=== PATIENT | female | born 1960 | race Caucasian/White ===

== ENCOUNTER 2017-05-11 07:24 | Observation (INO) | payer OTHER ==
--- NOTE | 2017-05-11 07:40 | EDPHY ---
H & P Stated Complaint: dyspnea/congestiion/hx asthma/seen /on prednisone HPI/ROS: CHIEF COMPLAINT: Difficulty breathing HISTORY OF PRESENT ILLNESS: The patient is a 56 y/o female with a history of asthma arriving with her complaining of difficulty breathing onset 4 days ago. She has been using albuterol nebulizer treatments 4-5 times per day since then. She went to urgent care on Sunday and was prescribed a 60mg taper of prednisone in addition to her albuterol and Dulera treatments. Symptoms have not improved. Last night she had a productive cough with thick, viscous, green mucus and she says, "I thought I was going to ." She felt like she couldn't get air or stop coughing. She had a fever of 102.9F at home and has not taken anything for fever. This morning her describes her needing to stop talking every few words to take a breath. She is completing a duo neb treatment here during assessment and feels improved. No prior admissions for asthma. She received a flu vaccination this season. REVIEW OF SYSTEMS: A ten point review of systems was performed and is negative with the exception of the items mentioned in the HPI. Past medical history: Asthma - Dulera and albuterol (neb) Past surgical history: Wrist surgery Family history: Noncontributory Social history: at bedside. Nonsmoker. PCP: Dr. Sultana. General Appearance: Alert. Vital signs reviewed. Heart rate 132 at triage. Blood pressure 136/72. Afebrile. Eyes: Pupils equal and round, no conjunctival injection, no discharge. Anicteric. ENT, Mouth: Mucous membranes are moist, no oropharyngeal erythema or edema. Neck: No lymphadenopathy, supple. Respiratory: Lungs are clear to auscultation; no wheezes, rales, or rhonchi. Cardiovascular: Tachycardic regular; no murmur, rub, or gallop. Gastrointestinal: Abdomen is soft and nontender, no masses or organomegaly. Skin: Warm and dry, no rashes on exposed skin, normal color. Back: Nontender to palpation over the thoracolumbar spine. No CVAT. Extremities: No lower extremity edema, no calf tenderness or swelling. Neurological: Alert and oriented. Moving all four extremities easily and equally. Psychiatric: Normal affect. - Personal History Current Tetanus/Diphtheria Vaccine: Yes - Medical/Surgical History Hx Asthma: Yes Hx Chronic Respiratory Disease: No Hx Diabetes: No Hx Cardiac Disease: No Hx Renal Disease: No Hx Cirrhosis: No Hx Alcoholism: No Hx HIV/AIDS: No Hx Splenectomy or Spleen Trauma: No Other PMH: asthma - Social History Smoking Status: Never smoked Constitutional: Initial Vital Signs Temperature (C) 37.6 C 05/11/17 07:27 Heart Rate 132 H 05/11/17 07:27 Respiratory Rate 20 05/11/17 07:27 Blood Pressure 136/72 H 05/11/17 07:27 O2 Sat (%) 93 05/11/17 07:27 O2 Delivery Mode Room Air O2 (L/minute) 2 Allergies/Adverse Reactions: No Known Allergies Allergy (Unverified 05/11/17 07:26) Home Medications: Medication Instructions Recorded Albuterol Hfa Anes Only 05/11/17 Benzonatate [Tessalon Pearles (RX)] 100 mg PO TID #15 cap 05/11/17 Dulera 100 Mcg/5 Mcg Inhaler 05/11/17 Prednisone 05/11/17 Medical Decision Making - Diagnostics Imaging: I viewed and interpreted images myself ED Course/Re-evaluation: This is a 56 y/o female with asthma who is otherwise normally healthy and presents with a 4-day history of dyspnea and cough that worsened last night. She recorded a fever at home, but is afebrile here. Her lungs are clear on auscultation following a duo neb treatment and she is breathing more comfortably. Plan for IV, basic labs, flu swab, and chest x-ray. Positive for flu B. Chest x-ray shows no infiltrate. 0910: Reassessed patient and discussed work up. She is not febrile here. Oxygen saturations are in the high 90s on room air. She is breathing comfortably. Lungs remain clear without wheezing. She continues to be slightly tachycardic. We discussed symptomatic measures to treat her influenza. Hydration was emphasized. She is given a prescription for Tessalon Perles to use for cough. She is given instructions for fever and pain control. Danger signs reviewed. Differential Diagnosis: Shortness of breath including but not limited to pulmonary infectious process, COPD, asthma, pulmonary embolus and congestive heart failure. Fever in adults including but not limited to pneumonia, urinary tract infection, viral syndrome , and influenza. - Data Points Laboratory Results: Laboratory Results 05/11/17 08:14 05/11/17 08:14 05/11/17 05/11/17 05/11/17 08:50 08:23 08:14 WBC RBC Hgb Hct MCV MCH MCHC RDW Plt Count MPV Neut % (Auto) Lymph % (Auto) [place] % (Auto) Eos % (Auto) Baso % (Auto) Nucleat RBC Rel Count Absolute Neuts (auto) Absolute Lymphs (auto) Absolute Monos (auto) Absolute Eos (auto) Absolute Basos (auto) Absolute Nucleated RBC Immature Gran % Immature Gran # Sodium 141 mEq/L mEq/L (135-145) Potassium 4.1 mEq/L mEq/L (3.5-5.2) Chloride 106 mEq/L mEq/L (97-110) Carbon Dioxide 22 mEq/l mEq/l (22-31) Anion Gap 13 mEq/L mEq/L (8-16) BUN 13 mg/dL mg/dL (7-23) Creatinine 1.2 mg/dL H mg/dL (0.6-1.0) Estimated GFR 46 Glucose 86 mg/dL mg/dL (70-100) Calcium 9.2 mg/dL mg/dL (8.5-10.4) Total Bilirubin 0.7 mg/dL mg/dL (0.1-1.4) Conjugated Bilirubin 0.3 mg/dL mg/dL (0.0-0.5) Unconjugated Bilirubin 0.4 mg/dL mg/dL (0.0-1.1) AST 27 IU/L IU/L (14-46) ALT 30 IU/L IU/L (9-52) Alkaline Phosphatase 100 IU/L IU/L (38-126) Total Protein 7.0 g/dL g/dL (6.3-8.2) Albumin 4.0 g/dL g/dL (3.5-5.0) Nasal Influenza A PCR NEGATIVE FOR FLU A (NEGATIVE) Nasal Influenza B PCR FLU B DETECTED H (NEGATIVE) 05/11/17 08:14 WBC 12.04 10^3/uL H 10^3/uL (3.80-9.50) RBC 5.13 10^6/uL 10^6/uL (4.18-5.33) Hgb 15.6 g/dL g/dL (12.6-16.3) Hct 46.7 % % (38.0-47.0) MCV 91.0 fL fL (81.5-99.8) MCH 30.4 pg pg (27.9-34.1) MCHC 33.4 g/dL g/dL (32.4-36.7) RDW 15.1 % % (11.5-15.2) Plt Count 364 10^3/uL 10^3/uL (150-400) MPV 9.2 fL fL (8.7-11.7) Neut % (Auto) 51.4 % % (39.3-74.2) Lymph % (Auto) 39.2 % % (15.0-45.0) [place] % (Auto) 8.9 % % (4.5-13.0) Eos % (Auto) 0.1 % L % (0.6-7.6) Baso % (Auto) 0.2 % L % (0.3-1.7) Nucleat RBC Rel Count 0.0 % % (0.0-0.2) Absolute Neuts (auto) 6.18 10^3/uL 10^3/uL (1.70-6.50) Absolute Lymphs (auto) 4.72 10^3/uL H 10^3/uL (1.00-3.00) Absolute Monos (auto) 1.07 10^3/uL H 10^3/uL (0.30-0.80) Absolute Eos (auto) 0.01 10^3/uL L 10^3/uL (0.03-0.40) Absolute Basos (auto) 0.03 10^3/uL 10^3/uL (0.02-0.10) Absolute Nucleated RBC 0.00 10^3/uL 10^3/uL (0-0.01) Immature Gran % 0.2 % % (0.0-1.1) Immature Gran # 0.03 10^3/uL 10^3/uL (0.00-0.10) Sodium Potassium Chloride Carbon Dioxide Anion Gap BUN Creatinine Estimated GFR Glucose Calcium Total Bilirubin Conjugated Bilirubin Unconjugated Bilirubin AST ALT Alkaline Phosphatase Total Protein Albumin Nasal Influenza A PCR Nasal Influenza B PCR Medications Given: Discontinued Medications Albuterol/Ipratropium (Duoneb) 3 ml IH EDNOW ONE Stop: 05/11/17 07:48 Last Admin: 05/11/17 07:49 Dose: 3 ml Departure - Departure Disposition: Home, Routine, Self-Care Clinical Impression: Influenza B Dyspnea Qualifiers: Dyspnea type: shortness of breath Qualified Code(s): R06.02 - Shortness of breath Condition: Good Instructions: Influenza (ED) Additional Instructions: Adult Pain & Fever Control: We recommend Acetaminophen (Tylenol) and Ibuprofen (Motrin,Advil) for pain and fever control. When fever is high or pain severe, both drugs can be used at the same time, but at different intervals. Please note the time differences. Your dose is: Acetaminophen 650mg every 4 to 6 hours Ibuprofen 600mg every 6-8 hours with food Note: do not take Acetaminophen with Hydrocodone (Vicodin, Lortab) or Oxycodone (Percocet). These medications also contain Acetaminophen. No more than 3000mg of Acetaminophen should be taken in 24 hours (for an adult). Referrals: Raven Julian MD [Medical Doctor] - As per Instructions Prescriptions: Benzonatate [Tessalon Pearles (RX)] 100 mg PO TID #15 cap Report Scribed for: Kathrine Marie Report Scribed by: Yessenia Deras Date of Report: 05/11/17 Time of Report: 07:55 Physician Review and Approval Statement: 05/11/17 07:40 Portions of this note were transcribed by the medical office technologist. I, Dr. Kathrine Marie, personally performed the history, physical exam, and medical decision- making; and confirmed the accuracy of the information in the transcribed note.
[2017-05-11] MEDS ORDERED: IPRATROPIUM/ALBUTEROL 3 ML DEYVIAL IH ONE (07:47)
[2017-05-11 08:22] LABS: PLATELET COUNT 364 10^3/uL (150-400)
[2017-05-11] MEDS ORDERED: AZITHROMYCIN IV 500 MG in D5W 250 ML IV ONE (10:07)
[2017-05-11] MEDS ORDERED: NS 1,000 ML IV ONE (10:08)
[2017-05-11] MEDS ORDERED: AZITHROMYCIN IV 500 MG in NS 250 ML IV ONE (11:00)
[2017-05-11] MEDS ORDERED: ONDANSETRON DISINTEGRATING 4 MG TAB PO PRN (11:10)
[2017-05-11] MEDS ORDERED: ACETAMINOPHEN 325 MG TAB PO PRN (11:10)
[2017-05-11] MEDS ORDERED: ONDANSETRON 4 MG/2 ML VIAL IVP PRN (11:10)
[2017-05-11] MEDS ORDERED: ALBUTEROL 3 ML DEYVIAL IH PRN (11:10)
[2017-05-11] MEDS ORDERED: IBUPROFEN 600 MG TAB PO ONE ×2 (11:59→12:01)
[2017-05-11] MEDS ORDERED: ACETAMINOPHEN 500 MG TAB PO ONE (11:59)
[2017-05-11] MEDS ORDERED: ACETAMINOPHEN 500 MG TAB ONE (12:01)
[2017-05-11] MEDS: IPRATROPIUM/ALBUTEROL 3 ML DEYVIAL IH SCH ×3 (12:10→21:01)
[2017-05-11] MEDS: methylPREDNISolone SOD SUCC 125 MG/2 ML VIAL IVP SCH ×2 (13:17→17:57)
--- NOTE | 2017-05-11 15:23 | GHP ---
[f rep st] HISTORY AND PHYSICAL DATE OF ADMISSION: 05/11/2017 CHIEF COMPLAINT: Shortness of breath. HISTORY OF PRESENT ILLNESS: A 56-year-old female with a history of asthma, pretty well controlled. She developed asthma-like symptoms early this week, and went to urgent care. She was given steroids at that time. At that point, she did not have any infectious type symptoms. She does not know what triggered that asthma attack. However, yesterday she developed fevers, chills, a cough with some spu mariya production, and myalgias. She has significant shortness of breath and wheezing. Has been better with some treatments in the emergency department. REVIEW OF SYSTEMS: A 10-point review of systems was obtained and, other than stated, was negative. PAST MEDICAL HISTORY: Asthma. MEDICATIONS: Advair and albuterol. SOCIAL HISTORY: No smoking. FAMILY HISTORY: Reviewed and noncontributory. PHYSICAL EXAM: VITAL SIGNS: Afebrile. Blood pressure is 110/55, heart rate 110, oxygen saturation i s 98% on room air. GENERAL: The patient is well developed, no apparent distress. HEENT: Nonicteri c sclerae. Extraocular movements intact. Moist mucous membranes. NECK: Supple. No thyromegaly. LUNGS: Good effort. Some slightly decreased breath sounds. No wheezing. CARDIOVASCULAR: Regular r ate and rhythm. No murmurs, gallops. ABDOMEN: Positive bowel sounds. Soft, nontender, and nondist ended. No hepatosplenomegaly. EXTREMITIES: No clubbing, cyanosis, or edema. SKIN: Without rash. Dry, intact. NEUROLOGIC: Alert and oriented x3. Moving all 4 extremities equally. PSYCHIATRIC: Normal affect. LABORATORY DATA: White count slightly elevated at 12. Chemistry does show creatinine fairly elevate d at 1.2, and she is positive for flu B. Chest x-ray, personally reviewed and interpreted, shows pos sible lingular infiltrate. ASSESSMENT: This is a 56-year-old female, presenting with asthma exacerbation and influenza. PLAN: 1. Influenza. Will start Tamiflu. 2. Asthma exacerbation. She has been on prednisone for the last several days and, in spite of that, has had significant wheezing. We will do IV Solu-Medrol for the day at least, and then transition h er back to prednisone. 3. Possible pneumonia on chest x-ray. She does have a productive cough. Will cover with azithromyc in. /[id number]/MODL
--- NOTE | 2017-05-11 15:34 | PDMN ---
Medical Necessity Medical necessity: Patient meets inpatient criteria per physician note and MCG Sepsis and Other Febrile Illness, without Focal Infection vs M-60 Asthma ( exacerbation of asthma, likely due to influenza: significant shortness of breath w/wheezing, new fevers, chills, productive cough and myalgias; sat 88% on RA; ongoing tachycardia after IV hydration; leukocytosis/WBC > 12,000; creatinine 1.2; Influenza B +; anticipated LOS > 2 midnights for ongoing IV steroids, prn nebulizers, supplemental O2.)
[2017-05-11] MEDS: OSELTAMIVIR 6 MG/ML UDSYR PO SCH (17:57)
[2017-05-11] MEDS: Mometasone/Formoterol [Dulera 200 Mcg/5 Mcg Inhaler] 2 PUFFS IH SCH (20:51)
[2017-05-12] MEDS: methylPREDNISolone SOD SUCC 125 MG/2 ML VIAL IVP SCH ×2 (00:43→05:31)
[2017-05-12] MEDS: IPRATROPIUM/ALBUTEROL 3 ML DEYVIAL IH SCH ×2 (04:37→10:52)
[2017-05-12 04:41] VITALS: TEMP 98
[2017-05-12 04:52] LABS: PLATELET COUNT 333 10^3/uL (150-400)
[2017-05-12 08:19] VITALS: BP 126/64
[2017-05-12] MEDS: OSELTAMIVIR 6 MG/ML UDSYR PO SCH (08:20)
[2017-05-12] MEDS ORDERED: AZITHROMYCIN 250 MG TAB PO SCH (09:00)
[2017-05-12] MEDS ORDERED: ENOXAPARIN 40 MG/0.4 ML SYR SC SCH (09:00)
--- NOTE | 2017-05-12 09:29 | HOSPPROG ---
Hospitalist Progress Note Assessment/Plan: #Acute asthma exacerbation: due to Influenza B and CAP #Influenza B: Tamiflu #CAP: Azithro #Disp: DC today Subjective: feeling much better. Wants to go home Objective: Vital Signs Temp Pulse Resp BP Pulse Ox 36.7 C 96 16 126/64 H 93 05/12/17 08:18 05/12/17 08:18 05/12/17 08:18 05/12/17 08:18 05/12/17 08:18 Laboratory Results 05/12/17 04:35 05/12/17 04:35 05/11/17 05/12/17 05/13/17 05:59 05:59 05:59 Intake Total 1255 Balance 1255 - Physical Exam Constitutional: no apparent distress Eyes: PERRL Ears, Nose, Mouth, Throat: moist mucous membranes, hearing normal Cardiovascular: regular rate and rhythym Respiratory: no respiratory distress, other (diminished, no wheezes or rhonchi) Gastrointestinal: normoactive bowel sounds Genitourinary: no bladder fullness Skin: warm Musculoskeletal: full muscle strength Neurologic: AAOx3 ICD10 Worksheet Patient Problems: Problems Problem Status Onset Dyspnea Acute Influenza B Acute
[2017-05-12] MEDS ORDERED: predniSONE 20 MG TAB PO SCH (09:30)
[2017-05-12] MEDS: Mometasone/Formoterol [Dulera 200 Mcg/5 Mcg Inhaler] 2 PUFFS IH SCH (10:51)
--- NOTE | 2017-05-12 11:06 | GDS ---
[f rep st] DISCHARGE SUMMARY DISCHARGE DIAGNOSES: 1. Influenza B. 2. Community-acquired pneumonia. 3. Acute asthma exacerbation. HISTORY OF PRESENT ILLNESS: A 56-year-old female with history of asthma on inhalers, presented with asthma-like symptoms, thus went to Urgent Care. She was prescribed prednisone 60 at that time and wa s tapering down. At that time, she did not have any infectious symptoms. Day prior to admission, gene joseph had abrupt onset of fevers, chills, and cough with some sputum production and myalgias. HOSPITAL COURSE BY PROBLEM: 1. Influenza B. She will be treated with 5 days of Tamiflu. 2. Asthma exacerbation secondary to influenza and possible pneumonia. She was treated with Solu-Med rol here. She will resume her home prednisone dose and stop in the next 2 days. She is stable on ro om air. She has all of her inhalers at home. 3. Possible pneumonia on chest x-ray. Will treat for community-acquired pneumonia with azithromycin . 4. Cough. Matthew Nolasco were provided at discharge. DISPOSITION: Patient is stable for discharge. FOLLOWUP: With her PCP. NEW MEDICATIONS: 1. Tamiflu 75 mg for 8 more doses. 2. Azithromycin 250 for 3 doses. 3. Matthew Nolasco. /[id number]/MODL
[2017-05-12 11:07] VITALS: PULSE 84; RESP 17; O2SAT 94
== END 2017-05-12 11:55 | disposition home or self-care (01) ==
LOC: INTOOBSV 11:12 → OBSVTOIN 11:12 → F3E 12:31
PROVIDERS: ADMIT Internal Medicine; ATTEND Internal Medicine
DX: J10.08 Influenza due to other identified influenza virus with other specified pneumonia (principal); J18.9 Pneumonia, unspecified organism; J45.901 Unspecified asthma with (acute) exacerbation; R09.02 Hypoxemia; E86.9 Volume depletion, unspecified; Z79.51 Long term (current) use of inhaled steroids
CPT/HCPCS: 71046; 96365; 96372; 96375; 99285; G0378; J0456; J1650; J2930; J7512